=== PATIENT | male | born 1990 | race Caucasian/White ===

== ENCOUNTER 2017-04-10 18:34 | Emergency (ER) | payer OTHER ==
[~2017-04-10] VITALS: Ht 188 cm; Wt 149.4 kg
[~2017-04-10 18:34] MED LIST: FLEXERIL10 MG PO; NAPROSYN500 MG PO; PERCOCET 5/31 TABLET PO; TRAMADOL HCL50 MG PO; TYLENOL WITH C1 EACH PO
[2017-04-10 19:43] LABS: HEMATOCRIT 47.1 % (38.0-50.0); HEMOGLOBIN 16.6 G/DL (12.5-16.6); MCH 30.1 PG (29.0-34.0); MCHC 35.2 G/DL (30.0-36.0); MCV 85.5 FL (86-99); PLATELET COUNT 257 K/uL (156-360); RBC DIS.WIDTH-CV 13.2 % (11.8-14.6); RBC DIS.WIDTH-SD 40.7 % (39-53); RED BLOOD COUNT 5.51 M/uL (4.00-5.50); WHITE BLOOD COUNT 11.2 K/uL (4.1-10.2)
[2017-04-10 19:51] LABS: ALBUMIN 4.3 g/dL (3.2-4.8)
[2017-04-10 19:52] LABS: CHLORIDE 107 mEq/L (99-109); SODIUM 140 mEq/L (136-147)
[2017-04-10 19:54] LABS: GLUCOSE 143 mg/dL (70-99); TOTAL PROTEIN 7.6 g/dL (6.4-8.3)
[2017-04-10 19:56] LABS: TOTAL BILIRUBIN 0.3 mg/dL (0.0-1.0)
[2017-04-10 19:57] LABS: ALKALINE PHOSPHATASE 113 IU/L (3-129)
[2017-04-10 19:58] LABS: GFR ESTIMATE (CALCULATED) > 59 mL/min/ (58.99-99999)
[2017-04-10 19:59] LABS: AST (GOT) 24 IU/L (2-34); UREA NITROGEN (BUN) 11 mg/dL (9-23)
[2017-04-10 20:00] LABS: ALT (GPT) 43 IU/L (3-49)
[2017-04-10] MEDS ORDERED: AUGMENTIN875 MG PO (21:52)
[2017-04-10 22:00] VITALS: BP 148/83
== END 2017-04-10 22:22 | disposition home or self-care (01) ==
LOC: EME 18:34
DX: J32.9 Chronic sinusitis, unspecified (principal); R51 Headache; H53.8 Other visual disturbances; F17.200 Nicotine dependence, unspecified, uncomplicated; Z88.5 Allergy status to narcotic agent
CPT/HCPCS: 70450; 80053; 85027; 99281; 99283